=== PATIENT | female | born 1990 | race Caucasian/White ===

== ENCOUNTER 2017-04-07 05:26 | Day surgery (SDC) | payer BC ==
[2017-04-03 18:20] VITALS: BMI 41.7
[~2017-04-07] VITALS: Ht 172.7 cm; Wt 125.0 kg
[2017-04-07] VITALS (15 sets, daily range): BP systolic 120–156; BP diastolic 63–93; PULSE 84–100; RESP 13–30; Ht 172.7 cm; Wt 125.0 kg
[2017-04-07] MEDS ORDERED: FENTAnyl 50 MCG/ML VIAL ONE (06:18)
[2017-04-07] MEDS ORDERED: MIDAZOLAM 1 MG/ML 2 ML INJ ONE (06:18)
[2017-04-07] MEDS ORDERED: LIDOCAINE 2% (SDV) 5 ML INJ ONE (06:18)
[2017-04-07] MEDS ORDERED: ROCURONIUM 50 MG INJ ONE (06:18)
[2017-04-07] MEDS ORDERED: PROPOFOL 20 ML ONE (06:18)
[2017-04-07] MEDS ORDERED: NEOSTIGMINE 3 MG/3 ML SYRINGE ONE (06:18)
[2017-04-07] MEDS ORDERED: GLYCOPYRROLATE 1 MG INJ ONE (06:18)
[2017-04-07] MEDS ORDERED: ONDANSETRON 4 MG INJ ONE (06:19)
[2017-04-07] MEDS ORDERED: SUGAMMADEX SODIUM 200 MG/2 ML VIAL IV ONE (06:19)
[2017-04-07] MEDS ORDERED: DEXAMETHASONE 4 MG/ML 1 ML INJ ONE (06:19)
[2017-04-07] MEDS ORDERED: ROPIVACAINE 0.5 % 30 ML VIAL ONE ×2 (06:26→06:55)
[2017-04-07] MEDS ORDERED: MEPERIDINE 25 MG INJ IV PRN (06:30)
[2017-04-07] MEDS ORDERED: EPHEDrine SULFATE 50 MG/5 ML SYG IV PRN (06:30)
[2017-04-07] MEDS ORDERED: MIDAZOLAM 1 MG/ML 2 ML INJ IV PRN (06:30)
[2017-04-07] MEDS ORDERED: morphine (1 MG/ML) 10ML SYRINGE IV PRN ×3 (06:30)
[2017-04-07] MEDS ORDERED: LABETALOL HCL 20MG INJ IV PRN (06:30)
[2017-04-07] MEDS ORDERED: ONDANSETRON 4 MG INJ IV PRN ×2 (06:30→11:30)
[2017-04-07] MEDS ORDERED: OXYCODONE/ACETAMINOPHEN (5/325) TAB PO PRN ×4 (06:30→11:30)
[2017-04-07] MEDS ORDERED: FENTAnyl 50 MCG/ML VIAL IV PRN ×2 (06:30)
[2017-04-07] MEDS ORDERED: DIPHENHYDRAMINE 50 MG INJ IV PRN (06:30)
[2017-04-07] MEDS ORDERED: HYDROmorphONE (0.2 MG/ML) 10ML SYG IV PRN ×3 (06:30)
[2017-04-07] MEDS ORDERED: hydrALAzine 20 MG INJ IV PRN (06:30)
[2017-04-07] MEDS ORDERED: ATROPINE 1 MG/10 ML SYRINGE IV PRN (06:30)
--- NOTE | 2017-04-07 06:44 | HPN ---
Date/Time of Note Date/Time of Note DATE: 04/07/17 TIME: 06:43 Interval H&P Admission Note Pt. seen H&P reviewed: No system changes APRIL SPENCER MD Apr 07, 2017 06:44
[2017-04-07] MEDS ORDERED: POVIDONE IODINE 10% 28.4 GM OINT ONE (06:55)
[2017-04-07] MEDS ORDERED: POLYMYXIN/BACITRACIN 1L IRRIG ONE (06:55)
[2017-04-07] MEDS ORDERED: CEFAZOLIN 1 GM INJ ONE (07:00)
[2017-04-07] MEDS ORDERED: SERT100T PO (07:06)
[2017-04-07] MEDS ORDERED: BUSP10TA2 PO (07:06)
[2017-04-07] MEDS ORDERED: SULF1TAB31 PO (07:06)
[2017-04-07] MEDS ORDERED: ELET20TA PO (07:06)
[2017-04-07] MEDS ORDERED: ADDE30 PO (07:06)
[2017-04-07] MEDS ORDERED: CHOL20002 PO (07:06)
[2017-04-07] MEDS ORDERED: CHOL200073 PO (07:06)
[2017-04-07] MEDS ORDERED: OLOP30.5 NASAL (07:06)
[2017-04-07] MEDS ORDERED: DEXL60CA2 PO (07:06)
[2017-04-07] MEDS ORDERED: TRAZ100T15 PO (07:06)
[2017-04-07] MEDS ORDERED: ESZO3TAB12 PO (07:06)
[2017-04-07] MEDS ORDERED: CETI5SOL PO (07:06)
[2017-04-07] MEDS ORDERED: OMEG1CAP17 PO (07:06)
[2017-04-07] MEDS ORDERED: LEVO15TA4 PO (07:06)
[2017-04-07] MEDS ORDERED: NORE1TAB12 PO (07:06)
[2017-04-07] MEDS ORDERED: TURM1POW2 MC (07:07)
[2017-04-07] MEDS ORDERED: SPIR25TA PO (07:07)
[2017-04-07] MEDS ORDERED: INOS500T PO (07:07)
[2017-04-07] MEDS ORDERED: MTF1000T PO (07:07)
[2017-04-07] MEDS ORDERED: LABETALOL HCL 20MG INJ ONE (08:40)
--- NOTE | 2017-04-07 09:07 | RADRPT ---
PROCEDURE: X-ray fluoroscopy guidance CLINICAL INDICATION: LT ANKLE ARTHROSCOPY BILAT. STRES VIEWS RM 4 O.R. TECHNIQUE: Fluoroscopic guidance was utilized for intraoperative procedure. COMPARISON: None. FINDINGS: Fluoroscopic guidance was utilized for intraoperative procedure. 0.1 minutes of fluoroscopy time wa s utilized for the procedure. 2 x-ray images were obtained during the procedure. The ankle mortise is intact. IMPRESSION: X-ray fluoroscopic guidance utilized for intraoperative procedure. The ankle mortise is intact. Please see procedure note details. RPTAT: EE Physician Damien Date Time Electronically viewed and signed by Physician Damien on 04/07/2017 09:07 /
[2017-04-07] MEDS ORDERED: SOD CHLORIDE 0.9% 1,000 ML IV SCH (11:21)
--- NOTE | 2017-04-07 11:21 | OPPN ---
Date/Time of Note Date/Time of Note DATE: 04/07/17 TIME: 11:17 Operative Report Preoperative Diagnosis Left lateral ankle instability with soft tissue impingement Postoperative Diagnosis Same Operation/Procedure Performed Left ankle arthroscopy with soft tissue debridement Left ankle open Modified Brostrom reconstruction Provider: APRIL SPENCER MD assistant professor: LUIS ANTONIO CHRISTIAN MD Anesthesia Type: general Estimated blood loss: 10 - 50 ml's Transfusion Required: no Specimen: none Grafts/Implants: none Complications: no APRIL SPENCER MD Apr 07, 2017 11:21
[2017-04-07] MEDS ORDERED: morphine 2 MG INJ IV PRN (11:30)
--- NOTE | 2017-04-07 14:26 | OPR ---
DATE OF OPERATION: 04/07/2017 PREOPERATIVE DIAGNOSES: 1. Soft tissue impingement, left ankle. 2. Anterolateral instability, left ankle POSTOPERATIVE DIAGNOSES: 1. Soft tissue impingement, left ankle. 2. Anterolateral instability, left ankle. SURGERIES: 1. Bilateral inversion stress x-rays under anesthesia. 2. Arthroscopy left ankle soft tissue distraction. 3. Extensive debridement of the ankle. 4. Open modified Brostrom reconstruction, left ankle. 5. Short-leg cast. SURGEON: Dr. Goyo Aranda. FAMILY AND DIVORCE LEGAL ASSISTANT: Dr. Hernán Dockery. ANESTHESIA: General with popliteal block. TOURNIQUET TIME: 57 minutes. OPERATIVE PROCEDURE: Patient taken to the operating room and placed supine position under satisfactory popliteal block and satisfactory general anesthesia was administered. 2 g Ancef intravenously. The fluoroscope was brought in and bilateral inversion stress x-rays were done under anesthesia by myself. There was minimal laxity noted of the right ankle., mild laxity in the left ankle consistent with her complaints and her clinical exam. The left thigh was then secured in a thigh harper. Both arms were carefully padded. The left leg was prepped and draped in usual manner. Distraction was applied to the ankle. Standard anteromedial, anterolateral and posterior portals were used using extreme caution to avoid injury to neurovascular structures. There was synovitis and wear and tear articulation. There was some mild cartilage injury along the medial corner of the distal tibia and talus. Essential overhang was intact. Syndesmosis was intact. There was scarring along the lateral gutter with some scarring along the lateral anterior talofibular ligament. Mild scarring and synovitis post anteriorly. Anteriorly, centrally, and posteriorly the articular surface was smooth except for minimal irregularity medially, synovitis posteriorly was identified. The ligaments posterior were intact. Posterior ligaments were debrided. Hemorrhagic synovial nodule was debrided. The medial lateral gutters were excised, but was distal tibia as well as the anterior gutter. After complete debridement, we felt it was appropriate to go ahead with the modified Brostrom procedure. The wounds were irrigated clear. The ankle was re-prepped and draped, repositioned, and all new instruments were used. Gowns and gloves were changed. Incision was made from the tip of the fibula and carried down several centimeters distally toward the 4th metatarsal. Dissection carried down to subcutaneous tissue. Bleeders were coagulated as encountered. Care was taken to avoid injury to neurovascular structures, extensor retinaculum was freed up by identifying the peroneal tendons after opening the peroneal tendon sheath. It was then freed distally and anteriorly and labile. Interval between the syndesmotic ligament and anterior talofibular ligament was identified. A clamp was placed in this interval underneath the anterior tibiofibular ligament. Using electrosurgery the anterior tibiofibular ligament was released leaving a cuff of tissue on the fibular. Calcaneal fibular ligament had minimal an injury and was only partially released. There was a significant anterior drawer when the ligaments were released. The wound irrigated with antibiotic solution. The lateral gutter otherwise looked good. We felt that the tissues were adequate to go do a Brostrom procedure without a hamstring reconstruction. Then 0 PDS was placed in a urhpr-jarm-sful fashion and reattached portion to the calcaneal fibular ligament by retracting the peroneal tendons. Then 0 FiberWire was placed in a pants-over- vest fashion reattaching the remaining portion anterior talofibular ligament from posterior to anterior. The final stitch anterior along the anterior aspect of the lateral gutter and capsule was closed with an 0 PDS as well in a figure-of- eight. Care was taken throughout the procedure to avoid injury to neurovascular structures, particularly anteriorly. The ankle was then placed in neutral position and held with a posterior drawer. The sutures were sequentially tied from posterior to anteriorly. When we were done, the motion remained intact in the ankle. Anterior drawer was illuminated. The peroneal tendon sheaths were closed with 3-0 PDS. The ankle felt stable. The wound is irrigated with antibiotic solution. The extensor retinaculum was advanced proximally with 3-0 PDS onto the fibula. The tourniquet was released. Bleeders were coagulated. Wounds irrigated with antibiotic solution again. Subcutaneous tissue closed with 3-0 undyed Vicryl and the skin with 4-0 black nylon. Compression dressing was applied, as well as short-leg cast in neutral position. At the end of the procedure, sponge and needle count was correct. Patient tolerated well, was taken recovery room in stable condition. The cast was split in the recovery room. SKI MAKER WOOD ORTHOPEDIC SURGEON DURING THE PROCEDURE: Prosthetic Makeup Designer orthopedic surgeon was used at my request. The diet assistant helped with distracting the ankle, manipulating the arthroscope, helping tie the sutures while holding the ankle reduced. Without a skilled orthopedic surgeon diet assistant this could not have been done, therefor should be compensated appropriately. Dictated By: Goyo Aranda MD /evelyn/sherice /Document#: [id number] [facility] HOSPITALNilam
== END 2017-04-07 14:00 | disposition home or self-care (01) ==
LOC: SDS 05:26
PROVIDERS: ATTEND Orthopaedic Surgery
DX: M25.372 Other instability, left ankle (principal); M25.872 Other specified joint disorders, left ankle and foot; M65.871 Other synovitis and tenosynovitis, right ankle and foot; F41.9 Anxiety disorder, unspecified; E66.9 Obesity, unspecified; Z68.41 Body mass index [BMI] 40.0-44.9, adult
CPT/HCPCS: 27695; 29898; 73600; 82962; J0690; J1100; J2250; J2405; J2795; J3010; J2710